=== PATIENT | male | born 1985 | race Caucasian/White ===

== ENCOUNTER 2020-02-16 14:30 | Emergency (ER) | payer MEDICAID ==
[~2020-02-16] VITALS: Ht 175.3 cm; Wt 80.0 kg
[2020-02-16] MEDS ORDERED: ondansetron/PF 4mg/2ml inj IV ONE (14:40)
[2020-02-16] MEDS ORDERED: normal saline 1000ML IV soln IVB ONE (14:40)
[2020-02-16 15:13] LABS: BASOPHILS % (AUTO) 0.4 % (0-1); EOSINOPHILS # (AUTO) 0.1 X10'3 (0-0.9); EOSINOPHILS % (AUTO) 1.3 % (0-6); HEMATOCRIT 43.9 % (42.0-52.0); HEMOGLOBIN 15.1 g/dl (14.0-17.9); LYMPHOCYTES # (AUTO) 1.7 X10'3 (1.1-4.8); LYMPHOCYTES % (AUTO) 23.8 % (21-51); MEAN CORPUSCULAR HGB CONC 34.4 g/dL (33.0-36.5); MEAN CORPUSCULAR VOLUME 90.1 FL (78-98); MEAN PLATELET VOLUME 8.3 FL (7.4-10.4); MONOCYTES # (AUTO) 0.6 X10'3 (0-0.9); MONOCYTES % (AUTO) 7.9 % (2-12); NEUTROPHILS # (AUTO) 4.9 X10'3 (1.8-7.7); NEUTROPHILS % (AUTO) 66.6 % (42-75); PLATELET COUNT 220 X10'3 (140-440); RED BLOOD COUNT 4.87 X10'6 (4.70-6.10); RED CELL DISTRIBUTION WIDTH 13.2 % (11.5-14.5); WHITE BLOOD COUNT 7.3 X10'3 (4.5-11.0)
[2020-02-16 15:22] LABS: ALANINE AMINOTRANSFERASE 28 U/L (12-78); ALBUMIN 4.3 G/DL (3.4-5.0); ALBUMIN/GLOBULIN RATIO 1.4 (1.1-1.5); ALKALINE PHOSPHATASE 33 IU/L (46-116); ANION GAP 8 (8-16); ASPARTATE AMINO TRANSFERASE 21 U/L (10-37); BILIRUBIN,TOTAL 0.6 MG/DL (0.1-1.0); BLOOD UREA NITROGEN 12 MG/DL (7-18); CALCIUM 9.1 MG/DL (8.5-10.1); CHLORIDE 103 MMOL/L (99-107); GLUCOSE 108 MG/DL (70-104); LIPASE 279 U/L (73-393); POTASSIUM 4.5 MMOL/L (3.5-5.1); SODIUM 139 MMOL/L (135-145); TOTAL CARBON DIOXIDE 28.3 MMOL/L (24-32); TOTAL PROTEIN 7.4 G/DL (6.4-8.2); eGFR 86 ML/MIN
[2020-02-16] MEDS ORDERED: sucralfate 1gm/10ml UD suspension PO STA (15:42)
--- NOTE | 2020-02-16 15:42 | NUR ---
DISCUSSED PT'S C/O BURNING IN STOMACH; NEW ORDER FOR GI COCKTAIL RECEIVED.
[2020-02-16] MEDS ORDERED: mag hydrox/Alum hydrox/simeth 30ml oral suspension PO ONE (15:45)
[2020-02-16] MEDS ORDERED: LIDOcaine Viscous 15ml cup MM ONE (15:45)
[2020-02-16 16:36] VITALS: BP 131/72
== END 2020-02-16 16:37 | disposition home or self-care (01) ==
LOC: ER 14:30
DX: K58.0 Irritable bowel syndrome with diarrhea (principal); E86.0 Dehydration; F17.200 Nicotine dependence, unspecified, uncomplicated; F12.90 Cannabis use, unspecified, uncomplicated; Z72.89 Other problems related to lifestyle
CPT/HCPCS: 36415; 80053; 83690; 85025; 96361; 96374; 99283; J2405; J7030

== ENCOUNTER 2020-04-14 12:51 | Emergency (ER) | payer MEDICAID ==
[~2020-04-14] VITALS: Ht 172.7 cm; Wt 77.5 kg
[2020-04-14 13:10] VITALS: BP 145/76
[2020-04-14 13:38] LABS: CLARITY,URINE CLEAR (Clear); COLOR,URINE YELLOW (Yellow); GLUCOSE, URINE NEGATIVE (Neg); KETONES,URINE NEGATIVE (Neg); LEUKOCYTE ESTERASE ,URINE NEGATIVE (Neg); NITRITES, URINE NEGATIVE (Neg); OCCULT BLOOD,URINE NEGATIVE (Neg); PROTEIN,URINE NEGATIVE (Neg); UROBILINOGEN,URINE 0.2 E.U/dL (0.2-1.0)
[2020-04-14 13:40] LABS: UA COLLECTION TYPE CLN CATCH MIDSTREAM
--- NOTE | 2020-04-14 13:44 | NUR ---
PATIENT C/O PAIN IN LOWER BACK AND LEFT WRIST.
[2020-04-14] MEDS ORDERED: PRED20TA PO (15:10)
== END 2020-04-14 15:44 | disposition home or self-care (01) ==
LOC: ER 12:51
DX: M54.5 Low back pain (principal); M25.532 Pain in left wrist; F12.90 Cannabis use, unspecified, uncomplicated; Z79.899 Other long term (current) drug therapy; Z72.89 Other problems related to lifestyle
CPT/HCPCS: 73110; 81003; 99284

== ENCOUNTER 2020-10-08 23:43 | Emergency (ER) | payer MEDICAID ==
[~2020-10-08] VITALS: Ht 172.7 cm; Wt 75.0 kg
[2020-10-08] MEDS ORDERED: HYDROcodone/acetaminophen 10/325mg tab PO STA (23:48)
[2020-10-09] MEDS ORDERED: ketorolac trometh. 30mg/ml inj. IV ONE (01:30)
[2020-10-09] MEDS ORDERED: LIDOcaine 1% W/epiNEPHrine 1:200,000 10ml vial IJ ONE (01:55)
--- NOTE | 2020-10-09 01:59 | NUR ---
Set up for dental numbing at bedside, per md order.
[2020-10-09] MEDS ORDERED: LIDOcaine 1% W/epiNEPHrine 1:100,000 20ml vial IJ ONE (02:00)
[2020-10-09] MEDS ORDERED: PENI-88 PO (02:20)
[2020-10-09] MEDS ORDERED: ondansetron/PF 4mg/2ml inj IV ONE (02:20)
[2020-10-09] MEDS ORDERED: morphine 4 MG/ML inj SYRINge IV ONE (02:20)
[2020-10-09] MEDS ORDERED: ACET-3067 PO (02:20)
[2020-10-09 02:40] VITALS: BP 105/68
--- NOTE | 2020-10-09 02:49 | NUR ---
patient acknowledged understanding of dc intructions and rx instructions. patient pain better under control and will follow up with dentist. patients friend is ride. dc home. vs wnl.
== END 2020-10-09 02:49 | disposition home or self-care (01) ==
LOC: ER 23:44
DX: K02.9 Dental caries, unspecified (principal); K08.89 Other specified disorders of teeth and supporting structures; F17.200 Nicotine dependence, unspecified, uncomplicated; F12.90 Cannabis use, unspecified, uncomplicated; Z72.89 Other problems related to lifestyle; Z79.2 Long term (current) use of antibiotics
CPT/HCPCS: 96372; 96374; 99284; J1885; J2270; J2405